=== PATIENT | female | born 1945 | race Caucasian/White ===

== ENCOUNTER 2016-12-16 11:19 | Inpatient (IN) | payer OTHER ==
[~2016-12-16] VITALS: Ht 152.4 cm; Wt 55.0 kg
[~2016-12-16 11:19] MED LIST: ASPIR 8181 M1 PO; ATROVENT 00.5 MG/2.5 IH; CALCIUM 500 +1 EAC5 PO; CALCIUM 600 MG1 EACH PO; CELEXA10 MG PO; DEXAMETHASONE4 MG PO; FOLIC ACID1 MG PO; LEXAPRO10 MG PO; LIPITOR20 MG PO; PROTONIX40 MG PO; PROVENTIL,2.5 MG/3 M IH; TRAZODONE HCL50 MG PO; TYLENOL EXTRA500 MG PO; WOMEN'S 50+ DA1 EAC1 PO; ZOFRAN ODT4 MG PO
[2016-12-16 12:30] LABS: EOSINOPHIL (%) 3.1 % (0-5); EOSINOPHIL COUNT 0.1 K/uL (0-0.3); HEMATOCRIT 35.2 % (36.0-46.0); IMMATURE GRANULOCYTE COUNT 0.1 K/uL; INSTRUMENT ABS NEUTROPHIL CT 1.7 K/uL; LYMPHOCYTE COUNT 1.1 K/uL (1.0-2.8); MCH 28.9 PG (29.0-34.0); MCHC 32.7 G/DL (30.0-36.0); MCV 88.4 FL (83-99); MEAN PLAT.VOLUME 11.9 uM^3 (9.5-12.4); MONOCYTE (%) 13.9 % (3-12); MONOCYTE COUNT 0.5 K/uL (0-0.8); NEUTROPHIL COUNT 1.7 K/uL (1.8-6.4); RBC DIS.WIDTH-CV 15.1 % (11.8-14.6); RBC DIS.WIDTH-SD 48.9 % (39-53); RED BLOOD COUNT 3.98 M/uL (3.80-5.20)
[2016-12-16 12:33] LABS: PLATELET COUNT 117 K/uL (156-360); WHITE BLOOD COUNT 3.5 K/uL (4.1-10.2)
[2016-12-16 12:42] LABS: CHLORIDE 104 mEq/L (99-109); POTASSIUM 3.8 mEq/L (3.7-5.4); SODIUM 136 mEq/L (136-147)
[2016-12-16 12:44] LABS: GLUCOSE 91 mg/dL (70-99)
[2016-12-16 12:45] LABS: ANION GAP 11 MEQ/L (2-14)
[2016-12-16 12:46] LABS: TOTAL BILIRUBIN 0.4 mg/dL (0.0-1.0)
[2016-12-16 12:47] LABS: ALKALINE PHOSPHATASE 117 IU/L (3-129)
[2016-12-16 12:48] LABS: GFR ESTIMATE (CALCULATED) 43 mL/min/
[2016-12-16 12:49] LABS: UREA NITROGEN (BUN) 19 mg/dL (9-23)
[2016-12-16 12:51] LABS: LIPASE 31 U/L (1.0-51.0)
[2016-12-16 13:11] LABS: ADD MIUA? YES; BILIRUBIN NEGATIVE; BLOOD NEGATIVE; COLOR YELLOW ((YELLOW)); GLUCOSE (STRIP) NEGATIVE; KETONES NEGATIVE; LEUKOCYTES MODERATE; NITRITE NEGATIVE; PROTEIN (STRIP) NEGATIVE; SPECIFIC GRAVITY 1.011 (1.000-1.030); UROBILINOGEN 0.2 MG/DL (0.2-1.0)
[2016-12-16 13:25] LABS: BACTERIA RARE /HPF; EPITHELIAL CELLS RARE /HPF; HYALINE CASTS 0-5 /LPF; MUCUS TRACE /LPF; RED BLOOD CELLS 0-5 /HPF (0-5); UCUL ADDED? NO; WHITE BLOOD CELLS 15-20 /HPF (0-5)
[2016-12-16] MEDS ORDERED: CALCIUM 500 +1 EACH PO (16:56)
[2016-12-16] MEDS ORDERED: MOTRIN IB200 MG PO (16:57)
[2016-12-16] MEDS ORDERED: NEXIUM 24HR20 MG PO (16:57)
[2016-12-16] MEDS ORDERED: CARAFATE1 GM PO (16:57)
[2016-12-16] MEDS ORDERED: ZOFRAN8 MG PO (16:58)
[2016-12-16 20:36] VITALS: BP 178/76
[2016-12-16 23:14] VITALS: BP 178/76
[2016-12-17 03:40] LABS: INTERNAL CONTROL VALID? YES
[2016-12-17 04:14] LABS: C DIFF TOXIN POSITIVE (NEGATIVE)
[2016-12-17 04:15] LABS: PROBE CHECK PASS
[2016-12-17 08:00] VITALS: BP 128/74
[2016-12-17 08:18] LABS: EOSINOPHIL (%) 2.8 % (0-5); EOSINOPHIL COUNT 0.1 K/uL (0-0.3); HEMATOCRIT 31.2 % (36.0-46.0); IMMATURE GRANULOCYTE (%) 2.8 % (0.0-0.7); IMMATURE GRANULOCYTE COUNT 0.1 K/uL; INSTRUMENT ABS NEUTROPHIL CT 1.2 K/uL; MCH 28.8 PG (29.0-34.0); MCHC 32.7 G/DL (30.0-36.0); MCV 88.1 FL (83-99); MEAN PLAT.VOLUME 11.7 uM^3 (9.5-12.4); MONOCYTE (%) 15.5 % (3-12); MONOCYTE COUNT 0.4 K/uL (0-0.8); NEUTROPHIL (%) 41.8 % (45-76); NEUTROPHIL COUNT 1.2 K/uL (1.8-6.4); PLATELET COUNT 114 K/uL (156-360); RBC DIS.WIDTH-CV 15.1 % (11.8-14.6); RBC DIS.WIDTH-SD 48.7 % (39-53); RED BLOOD COUNT 3.54 M/uL (3.80-5.20); WHITE BLOOD COUNT 2.8 K/uL (4.1-10.2)
[2016-12-17 08:46] LABS: ANION GAP 11 MEQ/L (2-14); CHLORIDE 106 MEQ/L (99-109); GLUCOSE 80 mg/dL (70-99); POTASSIUM 3.8 MEQ/L (3.7-5.4); SAMPLE HEMOLYSIS CHECK 0; SAMPLE ICTERIC CHECK 0; SAMPLE LIPEMIA CHECK 0; SODIUM 142 MEQ/L (136-147); UREA NITROGEN (BUN) 9 mg/dL (9-23)
[2016-12-17 08:49] LABS: GFR ESTIMATE (CALCULATED) > 59 mL/min/
[2016-12-17 15:24] VITALS: BP 119/65
[2016-12-17 23:07] VITALS: BP 140/63
[2016-12-18 06:42] LABS: EOSINOPHIL (%) 1.8 % (0-5); EOSINOPHIL COUNT 0.1 K/uL (0-0.3); HEMATOCRIT 29.7 % (36.0-46.0); IMMATURE GRANULOCYTE (%) 0.9 % (0.0-0.7); INSTRUMENT ABS NEUTROPHIL CT 1.6 K/uL; LYMPHOCYTE COUNT 1.2 K/uL (1.0-2.8); MCH 29.2 PG (29.0-34.0); MCV 88.4 FL (83-99); MEAN PLAT.VOLUME 11.7 uM^3 (9.5-12.4); MONOCYTE (%) 13.4 % (3-12); MONOCYTE COUNT 0.4 K/uL (0-0.8); NEUTROPHIL (%) 48.5 % (45-76); NEUTROPHIL COUNT 1.6 K/uL (1.8-6.4); PLATELET COUNT 121 K/uL (156-360); RBC DIS.WIDTH-CV 15.1 % (11.8-14.6); RBC DIS.WIDTH-SD 48.8 % (39-53); RED BLOOD COUNT 3.36 M/uL (3.80-5.20); WHITE BLOOD COUNT 3.3 K/uL (4.1-10.2)
[2016-12-18 07:27] LABS: ANION GAP 8 MEQ/L (2-14); CHLORIDE 107 MEQ/L (99-109); GFR ESTIMATE (CALCULATED) > 59 mL/min/; GLUCOSE 79 mg/dL (70-99); POTASSIUM 3.4 MEQ/L (3.7-5.4); SAMPLE HEMOLYSIS CHECK 0; SAMPLE ICTERIC CHECK 0; SAMPLE LIPEMIA CHECK 0; SODIUM 141 MEQ/L (136-147); UREA NITROGEN (BUN) 5 mg/dL (9-23)
[2016-12-18 07:43] VITALS: BP 140/65
[2016-12-18 17:28] VITALS: BP 134/64
[2016-12-18 23:55] VITALS: BP 153/82
[2016-12-19 07:09] LABS: EOSINOPHIL (%) 2.2 % (0-5); EOSINOPHIL COUNT 0.1 K/uL (0-0.3); HEMATOCRIT 30.2 % (36.0-46.0); INSTRUMENT ABS NEUTROPHIL CT 1.4 K/uL; LYMPHOCYTE COUNT 1.3 K/uL (1.0-2.8); MCH 29.2 PG (29.0-34.0); MCHC 32.8 G/DL (30.0-36.0); MCV 89.1 FL (83-99); MEAN PLAT.VOLUME 11.4 uM^3 (9.5-12.4); MONOCYTE (%) 12.7 % (3-12); MONOCYTE COUNT 0.4 K/uL (0-0.8); NEUTROPHIL (%) 43.5 % (45-76); NEUTROPHIL COUNT 1.4 K/uL (1.8-6.4); PLATELET COUNT 128 K/uL (156-360); RBC DIS.WIDTH-CV 15.3 % (11.8-14.6); RBC DIS.WIDTH-SD 49.1 % (39-53); RED BLOOD COUNT 3.39 M/uL (3.80-5.20); WHITE BLOOD COUNT 3.2 K/uL (4.1-10.2)
[2016-12-19 07:37] LABS: ANION GAP 7 MEQ/L (2-14); CHLORIDE 109 MEQ/L (99-109); GFR ESTIMATE (CALCULATED) > 59 mL/min/; GLUCOSE 92 mg/dL (70-99); POTASSIUM 3.5 MEQ/L (3.7-5.4); SAMPLE HEMOLYSIS CHECK 0; SAMPLE ICTERIC CHECK 0; SAMPLE LIPEMIA CHECK 0; SODIUM 142 MEQ/L (136-147); UREA NITROGEN (BUN) 5 mg/dL (9-23)
[2016-12-19 07:49] VITALS: BP 146/81
[2016-12-19] MEDS ORDERED: METRONIDAZOLE500 MG PO (11:38)
[2016-12-19 13:28] VITALS: BP 165/86
== END 2016-12-19 13:37 | disposition home or self-care (01) | DRG 372 ==
LOC: EXP 11:19 → EME 11:19 → 5SOUTH 17:34 → EDOF 17:34 → 5SOUTH 20:20
PROVIDERS: Emergency Medicine; Hospitalist; Internal Medicine
DX: A04.7 Enterocolitis due to Clostridium difficile (principal); I77.4 Celiac artery compression syndrome; K55.1 Chronic vascular disorders of intestine; C34.90 Malignant neoplasm of unspecified part of unspecified bronchus or lung; C79.51 Secondary malignant neoplasm of bone; D70.1 Agranulocytosis secondary to cancer chemotherapy; E87.6 Hypokalemia; I10 Essential (primary) hypertension; J44.9 Chronic obstructive pulmonary disease, unspecified; Z88.0 Allergy status to penicillin; Z88.5 Allergy status to narcotic agent; Z79.82 Long term (current) use of aspirin; Z87.891 Personal history of nicotine dependence
CPT/HCPCS: 74177; 80048; 80053; 81003; 82272; 82330; 83605; 83690; 85025; 87493; 99281; 99285; J0744; J1644; J7030; J7120; S0028; S0030